=== PATIENT | male | born 1985 ===

== ENCOUNTER 2016-08-02 12:17 | Emergency (ER) | payer OTHER ==
[2016-08-02 12:38] VITALS: BP 122/82
--- NOTE | 2016-08-02 13:25 | UC ---
Justin Burgess Janilya, scribed [facility] on 08/02/16 at 1241 . Back Pain HPI - HPI Summary HPI Summary: Nurse's note: A FEW MONTHS AGO HELD HIS BODY IN A BENT POSITION FOR A LONG TIME BUT THEN WENT INTO SPASMS. WAS SEEN FOR THIS INITIALLY AND SEEMED TO MAKE A FULL RECOVERY BUT LAST NIGH HIS BACK WENT OUT AGAIN. note: Back pain in a 31 y/o male, approximately 12 hours ago. Vital signs are stable. Pulse is 63. Pulse Ox is 100. Daily alcohol use, non-smoker. No significant PMHx. HPI: A 31 y/o male came in to [facility] presenting w/ a gradual onset of constant back pain starting last night. Pain is mostly located in the lower left area as well as around the spine. And it does not radiate much from base of spine. Movements such as twisting do not cause him pain, but does give him some discomfort. It is also uncomfortable to lie down. Pt states he "threw his back out" a couple months ago due to holding in a crouched position for extended amount of time as part of his job description. Pt states that being in that position made him feel tight, and progressively, it got more uncomfortable. At [facility], where he was seen for this pain a couple months ago, he was given Toradol, which alleviated his Sx. However , pt states he feels like he never fully regained his full strength. If not mindful, pt states he can feel like "his nerves are pinching". He states his muscles spasm and his back seizes up. Pt denies numbness in legs, urinary or bowel movement problems. - History of Current Complaint Chief Complaint: UCBackPain Stated Complaint: BACK PAIN Hx Obtained From: Patient Onset/Duration: Gradual Onset, Lasting Days, Still Present Timing: Constant, Lasting Days Severity Initially: Moderate Severity Currently: Moderate - Allergies/Home Medications Allergies/Adverse Reactions: Allergies Allergy/AdvReac Type Severity Reaction Status Date / Time Sulfa Antibiotics Allergy Unknown Hives Verified 08/02/16 12:32 Home Medications: Home Medications Ibuprofen TAB* [Advil TAB*] 3 tab PO TID PRN 08/02/16 [History Confirmed ] PMH/Surg Hx/FS Hx/Imm Hx Previously Healthy: Yes Endocrine History Of: Denies: Diabetes, Thyroid Disease Cardiovascular History Of: Denies: Cardiac Disorders, Hypertension Respiratory History Of: Denies: COPD, Asthma GI/ History Of: Denies: Ulcer - Surgical History Surgical History: Yes - Family History Known Family History: Negative: Cardiac Disease, Hypertension, Diabetes - Social History Occupation: Employed Full-time Alcohol Use: Daily Substance Use Type: None Smoking Status (MU): Never Smoked Tobacco Review of Systems Constitutional: Negative Skin: Negative Eyes: Negative ENT: Negative Respiratory: Negative Cardiovascular: Negative Gastrointestinal: Negative Genitourinary: Negative Motor: Negative Neurovascular: Negative Musculoskeletal: Arthralgia - back, Myalgia - back Neurological: Negative Psychological: Negative All Other Systems Reviewed And Are Negative: Yes Physical Exam Triage Information Reviewed: Yes Appearance: Well-Appearing, No Pain Distress, Well-Nourished Vital Signs: Initial Vital Signs Temp 97.6 F 08/02/16 12:33 Pulse 63 08/02/16 12:33 Resp 16 08/02/16 12:33 BP 122/82 08/02/16 12:33 Pulse Ox 100 08/02/16 12:33 Vital Signs Reviewed: Yes Eyes: Positive: Conjunctiva Clear ENT: Positive: Hearing grossly normal, Pharynx normal, TMs normal. Negative: Muffled/hoarse voice Neck: Positive: Supple, Nontender Respiratory: Positive: Chest non-tender, Lungs clear, Normal breath sounds, No respiratory distress Cardiovascular: Positive: RRR, No Murmur Abdomen Description: Positive: Nontender, No Organomegaly, Soft Bowel Sounds: Positive: Present Musculoskeletal: Positive: Strength Intact, Other: - PAIN IN MID BACK RADIATES TO BOTH SIDES IN THE LUMBOSACRAL JUNCTION. Neurological: Positive: Alert Psychological: Positive: Age Appropriate Behavior Skin: Negative: rashes Back Pain Course/Dx - Course Course Of Treatment: Considered nerve vs muscle injury as Ddx. Dx is lumbar muscle strain. I discussed the benefits of physical therapy. Recommended ibuprofen and muscle relaxants. - Differential Dx/Diagnosis Differential Diagnosis/HQI/PQRI: Strain, Other - Nerve injury Provider Diagnoses: Lumbar muscle strain Discharge - Discharge Plan Condition: Stable Disposition: HOME Prescriptions: Cyclobenzaprine TAB* [Flexeril TAB*] 10 mg PO BID #10 tab MDD 2 Ibuprofen TAB* [Motrin TAB* 800 MG] 600 mg PO Q6H #30 tab MDD 4 Patient Education Materials: Low Back Strain (ED), Muscle Spasm (ED) Referrals: No Primary Care Phys,NOPCP [Primary Care Provider] - Additional Instructions: WE DISCUSSED: YOU HAVE TORN MUSCLES IN YOUR LOW BACK. WARM MOIST HEAT TO AREA IN THE MORNING; ICE MASSAGE DURING THE DAY. IBUPROFEN, 600MG; ONE PILL THREE TIMES A DAY FOR 7-10 DAYS. GO TO ED FOR WORSENING PAIN OR NEW SYMPTOMS. PHYSICAL THERAPY REFERRAL GIVEN. RE CHECK AT ANY TIME FOR NEW SYMPTOMS, WORSENING SYMPTOMS OR IF YOU ARE NOT IMPROVING IN 5 DAYS. WE DISCUSSED: TREATMENT: IBUPROFEN DURING THE DAY FLEXERIL FOR MUSCLE SPASM PHYSICAL THERAPY Warm, moist heat to area in the morning when you wake up. ICE MASSAGE: When experiencing low back spasms, you can ice-massage every hour. Freeze water in a paper or styrofoam cup. Peel one or two inches off the top of the cup. The ice goes directly against the skin. You use the remainder of the cup for a handle. Lie on your stomach with a pillow under your pelvis and have someone give you the ice massage. You may also lie on your side with a pillow in between your legs. Gently massage a four inch by six inch area on one side of your spine, but not directly on the bone. Ice the area where you think the pain starts. Do this for five to seven minutes. At first the ice will feel very cold and then it will burn. Do not do any longer than seven minutes; you do not want to get frostbite. Follow up for any increased pain, temperature or disability. CONTRAST BATHS: Contrast baths have been recommended. These treatments decrease swelling and pain, and increase mobility in the area of injury. Contrast treatments are usually done two to four times daily. First soak the injury in warm water for about 20 minutes. After a few minutes in the warm water, begin to gently move the joints to restore the range of motion to normal. Do not push beyond the point of discomfort. (Your doctor will advise you of any other precautions.) Next soak the injury in cold water (or ice) for 20 minutes. Allow it to rest while in the cold water. PHYSICAL THERAPY REFERRAL: This is your referral to a physical therapist. The physical therapy (PT) will help you recover. After an injury, PT can reduce swelling and pain. In recovery, PT is used to restore mobility and strength. Your specific treatment goals are: +++Reduction of Swelling (EGS, US, ice as needed) +++Pain Reduction (EGS, US, ice as needed) +++Adventism of Mobility -Your diagnosis is: strain/sprain/OF THE LOW BACK. -Duration of therapy: two weeks or until resolution of condition. -Your physician re-evaluation needs to be arranged by you. The documentation as recorded by the Justin wray Janilya accurately reflects the service I personally performed and the decisions made by , Husam Chakraborty MD.
== END 2016-08-02 13:28 | disposition home or self-care (01) ==
LOC: UCEAST 12:17
DX: S39.012A Strain of muscle, fascia and tendon of lower back, initial encounter (principal); X50.1XXA Overexertion from prolonged static or awkward postures, initial encounter; Y93.89 Activity, other specified; Y92.9 Unspecified place or not applicable; Z88.2 Allergy status to sulfonamides
CPT/HCPCS: 99202; G0463